=== PATIENT | male | born 1995 | race African-American/Black ===

== ENCOUNTER 2020-02-29 23:23 | Emergency (ER) | payer OTHER | END 2020-03-01 00:32 | disposition home or self-care (01) | LOC: ERS 23:23 | DX: S16.1XXA Strain of muscle, fascia and tendon at neck level, initial encounter (principal); W06.XXXA Fall from bed, initial encounter | CPT/HCPCS: 99282 ==

== ENCOUNTER 2020-05-03 15:53 | Emergency (ER) | payer OTHER | END 2020-05-03 17:16 | disposition home or self-care (01) | LOC: ERS 15:53 | DX: M54.5 Low back pain (principal); W17.89XA Other fall from one level to another, initial encounter | CPT/HCPCS: 99281 ==

== ENCOUNTER 2020-07-17 22:23 | Emergency (ER) | payer OTHER ==
[2020-07-18] MEDS ORDERED: HYDROcodone/Acetaminophen 10/325 mg Tablet ONE (01:28)
--- NOTE | 2020-07-18 08:33 | RAD ---
LEFT SHOULDER 3 VIEWS: HISTORY: Trauma with pain. FINDINGS: No fracture or dislocation. AC joint normally aligned. IMPRESSION: No acute abnormality. POS: [id number]
== END 2020-07-18 01:46 | disposition home or self-care (01) ==
LOC: ERS 22:23
DX: S43.402A Unspecified sprain of left shoulder joint, initial encounter (principal); S13.4XXA Sprain of ligaments of cervical spine, initial encounter; S29.012A Strain of muscle and tendon of back wall of thorax, initial encounter; S16.1XXA Strain of muscle, fascia and tendon at neck level, initial encounter; V89.2XXA Person injured in unspecified motor-vehicle accident, traffic, initial encounter

== ENCOUNTER 2022-06-27 10:33 | Emergency (ER) | payer OTHER ==
[2022-06-27] MEDS ORDERED: Ondansetron ODT 4 MG TAB ONE (10:42)
[2022-06-27 11:23] LABS: #Lymphocytes 0.7 thou/uL (1.20-3.40); #Monocytes 0.5 thou/uL (0.11-0.59); %Basophils 0.1 % (0.0-1.0); %Eosinophils 0.2 % (0.0-10.0); %Monocytes 3.6 % (0.0-10.0); %Neutrophils 91.1 % (42.0-75.0); Hemoglobin 14.8 g/dL (14.0-18.0); Mean Corpuscular HGB CONC 32.3 g/dL (32.0-36.0); Mean Corpuscular Hemoglobin 31.1 pg (27.0-31.0); Mean Corpuscular Volume 96.3 fl (78.0-98.0); Mean Platelet Volume 8.6 fL (7.4-10.4); Platelet Count 212 10x3/uL (130-400); RBC Distribution Width 11.7 % (11.5-14.5); Red Blood Cell (RBC) Count 4.75 mill/uL (4.70-6.10); White Blood Cell (WBC) Count 13.2 10x3/uL (4.8-10.8)
[2022-06-27 11:42] LABS: ALT (SGPT) 21 U/L (8-55); AST (SGOT) 25 U/L (5-34); Albumin 4.9 g/dL (3.5-5.0); Alkaline Phosphatase 58 U/L (40-110); Anion Gap 16 mmol/L (10-20); BUN (Urea Nitrogen) 15 mg/dL (8.9-20.6); Bilirubin, Total 0.7 mg/dL (0.2-1.2); Calc. Creatinine Clearance 0 mL/min (70-130); Calcium 10.1 mg/dL (7.8-10.44); Carbon Dioxide 22 mmol/L (22-29); Chloride 102 mmol/L (98-107); Estimated GFR 107; Glucose 138 mg/dL (70-105); Lipase 20 U/L (8-78); Potassium 4.4 mmol/L (3.5-5.1); Protein, Total 7.9 g/dL (6.0-8.3); Sodium 136 mmol/L (136-145)
[2022-06-27] MEDS ORDERED: Mag-Al 1200 mg/1200 mg/30 ML UDCUP ONE (12:21)
[2022-06-27] MEDS ORDERED: Ondansetron PF 4 MG/2 ML Vial ONE (12:21)
== END 2022-06-27 14:16 | disposition home or self-care (01) ==
LOC: ERS 10:33
DX: R11.2 Nausea with vomiting, unspecified (principal); R10.9 Unspecified abdominal pain
CPT/HCPCS: 36415; 71045; 80053; 83690; 84484; 85025; 93005; 96361; 96374; J2405; Q0162